=== PATIENT | male | born 1975 | race Two or more races ===

== ENCOUNTER 2023-07-12 01:18 | Emergency (ER) | payer BC, OTHER ==
[~2023-07-12] VITALS: Ht 177.8 cm; Wt 97.7 kg
[2023-07-12 01:58] LABS: Basophils # (auto) 0.1 10 ^3/uL (0-0.2); Basophils % (auto) 0.7 % (0.0-2.0); Eosinophils # (auto) 0.2 10 ^3/uL (0-0.8); Eosinophils % (auto) 2.2 % (0.0-7.0); Lymphocytes # (auto) 2.7 10 ^3/uL (0.4-5.4); Lymphocytes % (auto) 30.5 % (10.0-50.0); Mean Corpuscular Hemoglobin 29.6 pg (28.0-32.0); Mean Corpuscular Hgb Conc. 33.3 g/dL (32.0-36.0); Monocytes # (auto) 0.8 10 ^3/uL (0-1.3); Monocytes % (auto) 9.3 % (0.0-12.0); Neutrophils % (auto) 57.3 % (37.0-80.0); Red Blood Cells 4.72 10^6/uL (4.5-5.90); White Blood Cell 8.7 10^3/uL (4.4-10.8)
[2023-07-12 03:19] LABS: Alanine Aminotransferase 41 U/L (7-40); Albumin 4.6 g/dL (3.2-4.8); Alkaline Phosphatase 59 U/L (46-116); Anion Gap 7 (5-15); Aspartate Aminotransferase 23 U/L (13-40); BUN/Creatinine Ratio 14.3 (10.0-20.0); Bilirubin, Total 0.8 mg/dL (0.2-1.0); Blood Urea Nitrogen 15 mg/dL (9-23); Calcium 10.1 mg/dL (8.7-10.4); Carbon Dioxide 26 mmol/L (20-30); Chloride 106 mmol/L (98-107); Glucose 88 mg/dL (74-106); Potassium 4.3 mmol/L (3.5-5.1); Sodium 139 mmol/L (136-145)
[2023-07-12] MEDS ORDERED: IBUP-1455 PO (06:15)
[2023-07-12] MEDS ORDERED: CYCL-839 PO (06:15)
[2023-07-12] MEDS: ASPirin 325 MG TAB PO ONE (06:42)
[2023-07-12] MEDS: diazePAM 5 MG TAB PO ONE (06:42)
[2023-07-12] MEDS: traMADol HCL 50 MG TAB PO ONE (06:43)
[2023-07-12 06:49] VITALS: TEMP 97.4; O2SAT 98
[2023-07-12] MEDS: ONDANSETRON HCL 4 MG/2 ML VIAL IM ONE (07:20)
[2023-07-12 07:21] VITALS: BP 130/74; PULSE 78; RESP 18
[2023-07-12] MEDS: HYDROmorphone HCL 2 MG/ML VL/or syr IM ONE (07:21)
== END 2023-07-12 07:30 | disposition home or self-care (01) ==
LOC: ER 01:18
DX: G24.3 Spasmodic torticollis (principal); Z79.899 Other long term (current) drug therapy
CPT/HCPCS: 36415; 70450; 71045; 72125; 73030; 80053; 83690; 83880; 84484; 85025; 85379; 93005; 96372; 99285; J1170; J2405